=== PATIENT | female | born 1980 | race Caucasian/White ===

== ENCOUNTER → 2017-02-22 | Outpatient (CLI) | payer BC ==
[~2017-02-22] MED LIST: BCPILLS PO; CETI10CA PO; IBUP-1428 PO
== END | disposition home or self-care (01) ==
LOC: C.PAPS 16:26
PROVIDERS: ATTEND Obstetrics & Gynecology
DX: Z01.419 Encounter for gynecological examination (general) (routine) without abnormal findings (principal)

== ENCOUNTER → 2017-03-09 | Outpatient (CLI) | payer BC, OTHER ==
[~2017-03-09] MED LIST changes: -CETI10CA PO; -IBUP-1428 PO
--- NOTE | 2017-03-29 08:20 | CODING QUERY NO DIAGNOSIS ---
TREATMENT RENDERED WITHOUT A DIAGNOSIS To promote full compliance with coding requirements relating to patient care, physician participation is requested in all cases of disc sander uncertainty. Please assist us with providing a diagnosis/symptom for the test(s) below: A diagnosis/symptom was not documented on your Order. A valid diagnosis/symptom is required to bill all insurances. Please remember that we are unable to code a diagnosis of rule out, probable, possible, questionable, or suspected. Tests that require a diagnosis: * MEDIAL CANTUS BIOPSY DIAGNOSIS: Provider Signature: Date: Thank you Yun Casillas [employer] Once completed, please kindly fax back to [phone] For questions please call [phone]
== END | disposition home or self-care (01) ==
LOC: C.PATHSPEC 12:16
PROVIDERS: ATTEND Ophthalmology
DX: L72.0 Epidermal cyst (principal)

== ENCOUNTER → 2017-06-07 | Outpatient (CLI) | payer BC, OTHER ==
--- NOTE | 2017-06-07 14:37 | DIAGNOSTIC IMAGING REPORT ---
ULTRASOUND OF THE PELVIS CLINICAL HISTORY: Pelvic pain. COMPARISON STUDY: No priors. TECHNIQUE: Real-time, grayscale, and color flow sonography of the pelvis is performed both transabdominally and endovaginally. Images are reviewed in the transverse and longitudinal planes. FINDINGS: Uterus: The uterus is normal in size and echotexture, measuring 8.0 x 4.6 x 5.7 cm. Endometrium: The endometrium is normal in appearance, and the endometrial stripe is normal in thickness measuring up to 0.4 cm. Ovaries: The ovaries are normal in size and morphology. The right ovary measures 2.6 x 2.3 x 2.1 cm and the left ovary measures 2.7 x 0.9 x 1.2 cm. There are small bilateral ovarian follicles. A dominant follicle in the right measures up to 1.5 cm. Normal Doppler waveforms are shown within both ovaries. Pelvis: There is a small volume of free fluid in the cul-de-sac. No concerning adnexal lesion is seen. IMPRESSION: 1. No acute sonographic abnormality is identified in the pelvis. 2. There is a small volume of free fluid in the cul-de-sac, likely within physiologic limits. Electronically signed by: Juan Manuel Cho M.D. 06/07/2017 2:36 PM Dictated Date/Time: 06/07/2017 2:34 PM
== END | disposition home or self-care (01) ==
LOC: C.ULTR 13:45
PROVIDERS: ATTEND Physician Assistant
DX: R10.2 Pelvic and perineal pain (principal)

== ENCOUNTER → 2017-06-15 | Outpatient (CLI) | payer BC, OTHER ==
[~2017-06-15] MED LIST changes: +OPTIRAY 320 IV PRN
--- NOTE | 2017-06-15 17:00 | DIAGNOSTIC IMAGING REPORT ---
ABDOMEN AND PELVIS CT WITH IV AND ORAL CONTRAST CT DOSE: 297.01 mGy.cm HISTORY: Left lower quadrant abdominal pain. TECHNIQUE: Multiaxial CT images of the abdomen and pelvis were performed following the use of intravenous and oral contrast. A dose lowering technique was utilized adhering to the principles of ALARA. COMPARISON STUDY: None. FINDINGS: The lung bases are clear. The liver, spleen, gallbladder, pancreas, kidneys, and adrenal glands are within normal limits. No bowel wall thickening or obstruction. The pelvic organs are unremarkable. No suspicious lytic or blastic osseous lesions. Punctate calcifications in the deep pelvis are consistent with phleboliths. Trace pelvic free fluid is likely physiologic. Small right ovarian cyst. Normal appendix. Tiny fat-containing umbilical hernia. IMPRESSION: 1. No bowel wall thickening or obstruction. 2. Normal appendix. 3. No hydronephrosis. 4. Trace pelvic free fluid. This is likely physiologic. Electronically signed by: Connor Horn M.D. 06/15/2017 4:59 PM Dictated Date/Time: 06/15/2017 4:52 PM
== END | disposition home or self-care (01) ==
LOC: C.CTS 14:13
PROVIDERS: ATTEND Student in an Organized Health Care Education/Training Program
DX: R10.32 Left lower quadrant pain (principal); Z78.9 Other specified health status

== ENCOUNTER 2017-10-14 14:21 | Emergency (ER) | payer OTHER ==
[~2017-10-14] VITALS: Ht 174 cm; Wt 70.7 kg
[~2017-10-14 14:21] MED LIST changes: +CETI10CA PO; +IBUP-1428 PO; -OPTIRAY 320 IV PRN
[2017-10-14 14:45] VITALS: TEMP 36.5; Ht 174 cm; Wt 70.7 kg
--- NOTE | 2017-10-14 15:48 | EMERGENCY ROOM VISIT NOTE ---
History First contact with patient: 15:25 Chief Complaint: VAGINAL BLEEDING Stated Complaint: VAGINAL BLEEDING, ALREADY HAD PERIOD History of Present Illness The patient is a 37 year old female who presents to the Emergency Room with complaints of vaginal bleeding for the last day. The patient had vaginal intercourse with her partner yesterday. It was slightly uncomfortable, but nothing unusual. She experienced the bleeding afterwards. She is also having lower abdominal cramping. She describes it as a normal period. She finished her menses 2 weeks ago. She is typically very regular every 28 days. She is . She has had 2 miscarriages in the past. She is currently not taking any oral contraceptives. No fever or chills. Of note, the patient has had some left lower abdominal pain over the last several months. 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 She has had an ultrasound with no significant abnormalities. Review of Systems 10 system review performed and negative unless noted in HPI or below Past Medical/Surgical History Otherwise healthy Social History Smoking Status: Never Smoker Marital Status: Occupation Status: employed Current/Historical Medications No Active Prescriptions or Reported Meds Physical Exam Vital Signs Date Time Temp Pulse Resp B/P (MAP) Pulse Ox O2 Delivery O2 Flow Rate FiO2 10/14/17 18:51 55 106/82 100 10/14/17 14:45 36.5 69 16 134/94 99 Room Air Physical Exam VITALS: Vitals are noted on the nurse's note and reviewed by myself. Vital signs stable. GENERAL: 37-year-old female, in no acute distress, nondiaphoretic, well- developed well-nourished. SKIN: The skin was without rashes, erythema, edema, or bruising. HEAD: Normocephalic atraumatic. HEART: Regular rate and rhythm without murmurs gallops or rubs. LUNGS: Clear to auscultation bilaterally without wheezes, rales or rhonchi. No accessory muscle use. ABDOMEN: Positive bowel sounds x 4.Soft, nontender, without organomegaly. No guarding or rebound tenderness. MUSCULOSKELETAL: No muscle atrophy, erythema, or edema noted. Strength 5/5 throughout. : External genitalia free of any lesions or lacerations. Very small amount of swelling noted of the left labia minora. No area of induration. Speculum exam reveals a small amount of dark brown blood in the vaginal vault. No vaginal wall lacerations or bleeding noted. The cervix is pink and free of any lesions. NEURO: Patient was alert and oriented to person place and time. Normal sensation to touch. No focal neurological deficits. Medical Decision & Procedures ER Provider Diagnostic Interpretation: Pelvic ultrasound Patient Name: SERA BLACK Unit Number: [id number] Dictated: 10/14/17 1640 Transcribed: 10/14/17 1640 PAJ Printed Date/Time: [~ rep prt dt]/[~ rep prt tm] [~ rep ct labl] - [~ rep ct ivnm] [facility] [place] [address] Dictated: 10/14/17 1640 Transcribed: 10/14/17 1640 PAJ Printed Date/Time: [~ rep prt dt]/[~ rep prt tm] [~ rep ct labl] - [~ rep ct ivnm] IMPRESSION: 1. Retroflexed uterus. 2. A 2.9 cm left ovarian simple cyst. 3. Trace pelvic free fluid is likely physiologic. 4. A few prominent pelvic varicosities within the left adnexa. Electronically signed by: Connor Horn M.D. 10/14/2017 4:43 PM Dictated Date/Time: 10/14/2017 4:40 PM The status of this report is Signed. Draft = Not yet reviewed or approved by Radiologist. Signed = Reviewed and approved by Radiologist. <AttendingPhy></AttendingPhy> <FamilyPhy>No Doctor, Assigned</FamilyPhy> < PrimaryPhy>No Doctor, Assigned</PrimaryPhy> <UnitNumber>[id number]</UnitNumber> <VisitNumber>[id number]</VisitNumber> <PatientName>SERA BLACK</PatientName> <DateOfBirth>1980</DateOfBirth> <Location>[facility]</Location > <ServiceDate>10/14/17</ServiceDate> <MNE>ESINDI</MNE> <OrderingPhy>Concha Dangelo PA-C</OrderingPhy> <OrderingPhyMNE>f rep ord dr arriola</OrderingPhyMNE> < DictatingPhyMNE>f rep dict dr arriola</DictatingPhyMNE> <CCListMNE>f rep ct mne</ CCListMNE> <AdmittingPhyMNE>f pt admit dr arriola</AdmittingPhyMNE> <AttendingPhyMNE >f pt attend dr arriola</AttendingPhyMNE> <ConsultingPhyMNE>f pt consult dr arriola</ConsultingPhyMNE> <FamilyPhyMNE>f pt fam dr arriola</FamilyPhyMNE> <OtherPhyMNE>f pt other dr arriola</OtherPhyMNE> < PrimaryPhyMNE>f pt prim care dr arriola</PrimaryPhyMNE> <ReferringPhyMNE>f pt referring dr arriola</ReferringPhyMNE> Laboratory Results 10/14/17 15:49 Red Blood Count 4.62, Mean Corpuscular Volume 86.6, Mean Corpuscular Hemoglobin 29.9, Mean Corpuscular Hemoglobin Concent 34.5, Mean Platelet Volume 8.7, Neutrophils (%) (Auto) 45.4, Lymphocytes (%) (Auto) 41.7, Monocytes (%) (Auto) 6.5, Eosinophils (%) (Auto) 5.5, Basophils (%) (Auto) 0.6, Neutrophils # (Auto) 3.17, Lymphocytes # (Auto) 2.90, Monocytes # (Auto) 0.45, Eosinophils # (Auto) 0.38, Basophils # (Auto) 0.04 10/14/17 15:49 Test 10/14/17 15:49 10/14/17 15:50 White Blood Count 6.96 K/uL (4.8-10.8) Red Blood Count 4.62 M/uL (4.2-5.4) Hemoglobin 13.8 g/dL (12.0-16.0) Hematocrit 40.0 % (37-47) Mean Corpuscular Volume 86.6 fL (80-100) Mean Corpuscular Hemoglobin 29.9 pg (25-34) Mean Corpuscular Hemoglobin Concent 34.5 g/dl (32-36) Platelet Count 310 K/uL (130-400) Mean Platelet Volume 8.7 fL (7.4-10.4) Neutrophils (%) (Auto) 45.4 % Lymphocytes (%) (Auto) 41.7 % Monocytes (%) (Auto) 6.5 % Eosinophils (%) (Auto) 5.5 % Basophils (%) (Auto) 0.6 % Neutrophils # (Auto) 3.17 K/uL (1.4-6.5) Lymphocytes # (Auto) 2.90 K/uL (1.2-3.4) Monocytes # (Auto) 0.45 K/uL (0.11-0.59) Eosinophils # (Auto) 0.38 K/uL (0-0.5) Basophils # (Auto) 0.04 K/uL (0-0.2) RDW Standard Deviation 41.4 fL (36.4-46.3) RDW Coefficient of Variation 13.1 % (11.5-14.5) Immature Granulocyte % (Auto) 0.3 % Immature Granulocyte # (Auto) 0.02 K/uL (0.00-0.02) Anion Gap 7.0 mmol/L (3-11) Est Creatinine Clear Calc Drug Dose 74.6 ml/min Estimated GFR () 78.0 Estimated GFR (Non- 67.3 BUN/Creatinine Ratio 11.9 (10-20) Calcium Level 9.3 mg/dl (8.5-10.1) Thyroid Stimulating Hormone (TSH) 1.160 uIu/ml (0.300-4.500) Human Chorionic Gonadotropin, Qual NEG (NEG) Urine Color YELLOW Urine Appearance CLEAR (CLEAR) Urine pH 8.0 (4.5-7.5) Urine Specific [place] 1.010 (1.000-1.030) Urine Protein NEG (NEG) Urine Glucose (UA) NEG (NEG) Urine Ketones NEG (NEG) Urine Occult Blood 2+ (NEG) Urine Nitrite NEG (NEG) Urine Bilirubin NEG (NEG) Urine Urobilinogen NEG (NEG) Urine Leukocyte Esterase NEG (NEG) Urine WBC (Auto) 0 /hpf (0-5) Urine RBC (Auto) 0-4 /hpf (0-4) Urine Hyaline Casts (Auto) 0 /lpf (0-5) Urine Epithelial Cells (Auto) 0-5 /lpf (0-5) Urine Bacteria (Auto) NEG (NEG) Medications Administered Medications (Trade) Dose Ordered Sig/Dominik Route Start Time Stop Time Status Last Admin Dose Admin Ibuprofen (Motrin Tab) 600 mg STK-MED ONCE .ROUTE 10/14/17 16:10 10/14/17 16:11 DC 10/14/17 16:10 600 MG Oxycodone/ Acetaminophen (Percocet 5-325mg Tab) 1 tab NOW STAT PO 10/14/17 17:34 10/14/17 17:35 DC 10/14/17 17:44 1 TAB ED Course Patient was seen and examined Vital signs including blood pressure were reviewed medications list was verified with patient Labs were obtained, The patient was medicated with Motrin. Imaging was performed and reviewed The patient was reassessed. Her pain was lightly better, however she was requesting more pain medication. She was given Percocet We thoroughly reviewed her results. She voiced understanding. She is comfortable being discharged home. I reviewed discharge instructions the patient. They voiced understanding and had no further questions. Medical Decision Differential diagnosis: Abnormal vaginal bleeding, menorrhagia, metrorrhagia, uterine fibroids, endometrial polyps, thyroid abnormality, anemia secondary to acute blood loss, ectopic , intrauterine , ovarian cysts, vaginal laceration This patient is a 37-year-old female that presents to emergency department with vaginal bleeding after vaginal intercourse. On exam, the patient was nontoxic in appearance. She had minor tenderness over the left lower quadrant. Her abdomen was benign on exam. exam does not reveal any signs of lacerations or trauma to the vagina. She had a small amount of dark brown blood in the vaginal vault consistent with breakthrough bleeding. Her ultrasound is consistent with a 2.8 cm left ovarian cyst. Otherwise, it was unremarkable. Her labs reveal no anemia. There is no leukocytosis, fever or discharge to suggest PID. I believe she likely is having breakthrough bleeding secondary to stopping her pill 2 months ago. She is stable to be discharged home. 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 She agrees to return to the emergency department with any new, worsening or concerning symptoms. This chart was completed in part utilizing Built In Speech Voice Recognition software. Attempts were made to minimize the grammatical errors, random word insertions, pronoun errors and incomplete sentences. Any formal questions or concerns about the content, text or information contained within the body of this dictation should be directly addressed to the provider for clarification. Medication Reconcilliation Current Medication List: was personally reviewed by me Blood Pressure Screening Patient's blood pressure: Normal blood pressure Impression Primary Impression: Vaginal bleeding Departure Information Dispostion Home / Self-Care Condition GOOD Prescriptions No Active Prescriptions or Reported Meds Referrals No Doctor, Assigned (PCP) Concha Albert M.D. Patient Instructions My [facility] [employer] [facility] Additional Instructions You have been evaluated for vaginal bleeding after intercourse. This is likely hormonal in nature. There was no significant trauma noted to the vaginal area. Your blood counts are normal. Please call your UNDERGROUND CONDUIT INST[employer] doctor in the morning for a follow-up appointment. I would refrain from intercourse until follow-up with UNDERGROUND CONDUIT INST[employer]ER. Please do not hesitate to return to the emergency department with any new, worsening or concerning symptoms; especially, bleeding through more than 1 pad per hour, severe abdominal pain, lightheadedness, chest pain or difficulty breathing.
[2017-10-14] MEDS ORDERED: KETOROLAC TROMETHAMINE 30 MG/ML VIAL IV STA (15:54)
[2017-10-14 15:59] LABS: BASO % 0.6 %; BASO ABS # 0.04 K/uL (0-0.2); EOS % 5.5 %; EOS ABS # 0.38 K/uL (0-0.5); HEMOGLOBIN 13.8 g/dL (12.0-16.0); IG# 0.02 K/uL (0.00-0.02); LYMPH % 41.7 %; MEAN CELL VOLUME 86.6 fL (80-100); MEAN CORPUSCULAR HEMOGLOBIN 29.9 pg (25-34); MEAN CORPUSCULAR HGB CONC 34.5 g/dl (32-36); MEAN PLATELET VOLUME 8.7 fL (7.4-10.4); MONO % 6.5 %; MONO ABS # 0.45 K/uL (0.11-0.59); NEUT % 45.4 %; NEUT ABS # 3.17 K/uL (1.4-6.5); PLATELET COUNT 310 K/uL (130-400); RED CELL DISTRIBUTION WIDTH CV 13.1 % (11.5-14.5); RED CELL DISTRIBUTION WIDTH SD 41.4 fL (36.4-46.3); WHITE BLOOD COUNT 6.96 K/uL (4.8-10.8)
[2017-10-14] MEDS ORDERED: IBUPROFEN 600 MG TAB ONE (16:10)
[2017-10-14 16:13] LABS: CALCIUM 9.3 mg/dl (8.5-10.1); CREATININE 1.05 mg/dl (0.60-1.20); POTASSIUM 3.6 mmol/L (3.5-5.1)
--- NOTE | 2017-10-14 16:44 | DIAGNOSTIC IMAGING REPORT ---
PELVIC ULTRASOUND, TRANSABDOMINAL AND TRANSVAGINAL HISTORY: vag bleeding cramping post intercourse COMPARISON: Pelvic ultrasound 06/07/2017. FINDINGS: Uterus: Retroflexed. No masses. Endometrial stripe: 2 mm. Right ovary: Normal in size and demonstrates normal color flow. Left ovary: Normal in size and demonstrates normal color flow. A 2.9 x 1.8 x 2.0 cm cyst. A few prominent varicosities within the left adnexa. Miscellaneous:Trace pelvic free fluid. IMPRESSION: 1. Retroflexed uterus. 2. A 2.9 cm left ovarian simple cyst. 3. Trace pelvic free fluid is likely physiologic. 4. A few prominent pelvic varicosities within the left adnexa. Electronically signed by: Connor Horn M.D. 10/14/2017 4:43 PM Dictated Date/Time: 10/14/2017 4:40 PM
[2017-10-14] MEDS ORDERED: OXYCODONE/ACETAMINOPHEN 5-325 TAB PO STA (17:34)
[2017-10-14 18:51] VITALS: BP 106/82; PULSE 55; O2SAT 100
== END 2017-10-14 18:52 | disposition home or self-care (01) ==
LOC: C.EDB 14:22 → C.EDC 18:52
DX: N93.9 Abnormal uterine and vaginal bleeding, unspecified (principal)